=== PATIENT | female | born 1930 | race African-American/Black ===

== ENCOUNTER 2017-12-03 12:33 | Inpatient (IN) ==
[2017-12-03] MEDS ORDERED: PIPERACILLIN/TAZOBACTAM 3,375 MG in SODIUM CHLORIDE 0.9% 100 ML IV STA (14:22)
[2017-12-03] MEDS ORDERED: ALBUTEROL 2.5 MG/3 ML NEB RESP TX STA (14:22)
[2017-12-03 15:03] LABS: Basophils % 0.8 % (0.0-0.8); Eosinophils # 0.1 10*3/uL (0.0-0.87); Eosinophils % 1.9 % (0.00-10.9); Hematocrit 43.2 VOL% (35.7-47.0); Hemoglobin 14.1 GM/DL (12.0-16.0); Immature Granulocytes % 0.4 %; Immature Granulocytes Absolute 0.02 #; Lymphocytes # 0.7 10*3/uL (1.4-4.0); Lymphocytes % 14.8 % (21.3-54.2); Mean Corpuscular HGB Conc 32.6 GM/DL (32-36); Mean Corpuscular Hemoglobin 33 PG (27-34); Mean Corpuscular Volume 101.6 FL (87-102); Mean Platelet Volume 10.7 FL (9.6-12.0); Monocytes # 0.5 10*3/uL (0.11-0.8); Monocytes % 11.2 % (1.7-12.7); Neutrophils # 3.4 10*3/uL (1.4-7.4); Neutrophils % 70.9 % (38.7-73.9); Platelet Count 185 T/CUMM (130-400); Red Blood Count 4.25 MC/CUMM (3.8-5.5); Red Cell Distribution Width 14.5 % (9.3-17.3); White Blood Count 4.7 T/CUMM (4-12)
[2017-12-03 15:09] LABS: INR 1.1; PT Patient Result 11.4 SECS
[2017-12-03 15:18] LABS: Albumin 3.2 G/DL (3.4-5.0); Bilirubin,Total 0.4 MG/DL (0.2-1.0); Calcium 8.1 MG/DL (8.5-10.1); Osmolality,Calculated 279.4 MOS/KG (273-304); Potassium 4.3 MMOL/L (3.5-5.1)
[2017-12-03] MEDS ORDERED: ONDANSETRON 4 MG/2 ML VIAL IV PRN (16:58)
[2017-12-03] MEDS ORDERED: ALBUTEROL 2.5 MG/3 ML NEB RESP TX PRN (16:58)
[2017-12-03] MEDS ORDERED: LEVOFLOXACIN INJ 750 MG in PREMIX 1 EACH IV SCH (17:00)
[2017-12-03] MEDS ORDERED: FEXOFENADINE 60 MG TABLET PO PRN (17:04)
[2017-12-03] MEDS ORDERED: diphenhydrAMINE CAP 25 MG CAPSULE PO PRN (17:04)
[2017-12-03] MEDS ORDERED: LOPERAMIDE 2 MG CAPSULE PO PRN (17:04)
[2017-12-03] MEDS ORDERED: PROMETHAZINE 25 MG TABLET PO PRN (17:04)
[2017-12-03] MEDS ORDERED: MAGNESIUM HYDROXIDE SUSP 30 ML UDCUP PO PRN (17:04)
[2017-12-03 18:17] LABS: ABG Base Excess 0.8 MMOL/L (-2.5-2.5); ABG Oxygen Saturation 93.4 % (95-100); ABG PCO2 67.8 MM HG (35-48); ABG PO2 74.7 MM HG (80-95); ABG TCO2 26.8 MMOL/L (23-27)
[2017-12-03] MEDS: ALBUTEROL/IPRATROPIUM 3 ML NEB RESP TX SCH (19:32)
[2017-12-03] MEDS ORDERED: LEVOFLOXACIN INJ 150 ML IV ONE (20:44)
[2017-12-03] MEDS: PSYLLIUM POWDER 3.7 GM/PACK PO SCH (22:01)
[2017-12-03] MEDS: CYPROHEPTADINE 4 MG TABLET PO SCH (22:02)
[2017-12-03] MEDS: DONEPEZIL 5 MG TABLET PO SCH (22:02)
[2017-12-03] MEDS: CARVEDILOL 12.5 MG TABLET PO SCH (22:02)
[2017-12-03] MEDS: MIRTAZAPINE 15 MG TABLET PO SCH (22:02)
[2017-12-03] MEDS: ENOXAPARIN 40 MG/0.4 ML SYRINGE SUBCUT SCH (22:03)
[2017-12-03] MEDS: PIPERACILLIN/TAZOBACTAM 3,375 MG in SODIUM CHLORIDE 0.9% 100 ML IV SCH (22:26)
[2017-12-04] MEDS: ALBUTEROL/IPRATROPIUM 3 ML NEB RESP TX SCH ×4 (00:12→19:43)
[2017-12-04 04:19] LABS: Basophils % 0.4 % (0.0-0.8); Eosinophils % 0.6 % (0.00-10.9); Hematocrit 42.5 VOL% (35.7-47.0); Hemoglobin 13.5 GM/DL (12.0-16.0); Immature Granulocytes % 1.1 %; Immature Granulocytes Absolute 0.05 #; Lymphocytes # 0.6 10*3/uL (1.4-4.0); Lymphocytes % 11.9 % (21.3-54.2); Mean Corpuscular HGB Conc 31.8 GM/DL (32-36); Mean Corpuscular Hemoglobin 33 PG (27-34); Mean Corpuscular Volume 103.4 FL (87-102); Mean Platelet Volume 10.6 FL (9.6-12.0); Monocytes # 0.5 10*3/uL (0.11-0.8); Neutrophils # 3.5 10*3/uL (1.4-7.4); Platelet Count 152 T/CUMM (130-400); Red Blood Count 4.11 MC/CUMM (3.8-5.5); Red Cell Distribution Width 14.2 % (9.3-17.3); White Blood Count 4.6 T/CUMM (4-12)
[2017-12-04 04:40] LABS: Calcium 8.1 MG/DL (8.5-10.1); Osmolality,Calculated 283.1 MOS/KG (273-304); Potassium 4.1 MMOL/L (3.5-5.1)
[2017-12-04] MEDS: PIPERACILLIN/TAZOBACTAM 3,375 MG in SODIUM CHLORIDE 0.9% 100 ML IV SCH ×3 (05:55→23:25)
[2017-12-04] MEDS: CARVEDILOL 12.5 MG TABLET PO SCH ×2 (08:58→16:50)
[2017-12-04] MEDS: AMIODARONE 200 MG TABLET PO SCH (08:58)
[2017-12-04] MEDS: CITALOPRAM 20 MG TABLET PO SCH (08:58)
[2017-12-04] MEDS: FERROUS SULFATE 325 MG TABLET PO SCH (08:58)
[2017-12-04] MEDS: POTASSIUM CHLORIDE 20 MEQ TABLET PO SCH (08:58)
[2017-12-04] MEDS: amLODIPine 5 MG TABLET PO SCH (08:58)
[2017-12-04] MEDS: POLYETHYLENE GLYCOL POWDER 17 GM PACK PO SCH (08:59)
[2017-12-04] MEDS: PANTOPRAZOLE 40 MG TABLET PO SCH (08:59)
[2017-12-04] MEDS: CYPROHEPTADINE 4 MG TABLET PO SCH ×2 (08:59→20:35)
[2017-12-04] MEDS ORDERED: PANTOPRAZOLE 40 MG TABLET PO SCH (09:00)
[2017-12-04] MEDS ORDERED: FUROSEMIDE 40 MG/4 ML VIAL IV ONE (15:56)
[2017-12-04] MEDS: VANCOMYCIN INJ 750 MG in SODIUM CHLORIDE 0.9% 250 ML IV SCH (16:38)
[2017-12-04] MEDS: ENOXAPARIN 40 MG/0.4 ML SYRINGE SUBCUT SCH (16:50)
[2017-12-04] MEDS: MIRTAZAPINE 15 MG TABLET PO SCH (20:35)
[2017-12-04] MEDS: PSYLLIUM POWDER 3.7 GM/PACK PO SCH (20:35)
[2017-12-04] MEDS: DONEPEZIL 5 MG TABLET PO SCH (20:35)
[2017-12-04 21:31] LABS: Apearance,Urine Slightly Hazy (Clear); Bacteria,Urine Occasional /HPF (Few); Bilirubin,Urine Negative (Negative); Blood, Urine Negative (Negative); Glucose,Urine (UA) Negative (Negative); Ketones,Urine Negative (Negative); Mucus,Urine Occasional /LPF (Occasional); Nitrite,Urine Negative (Negative); Protein,Urine Negative; Squamous Epithelial Cell,Urine Occasional /HPF (0-10); Urine Color Straw (Yellow); Urine Specific Gravity 1.004 (1.001-1.035); Urine Urobilinogen < 2.0 EU/DL (0.2-1.0); WBC,Urine 1 /HPF (0-6)
[2017-12-05] MEDS: ALBUTEROL/IPRATROPIUM 3 ML NEB RESP TX SCH ×4 (01:20→19:22)
[2017-12-05 04:15] LABS: Basophils % 0.6 % (0.0-0.8); Eosinophils # 0.1 10*3/uL (0.0-0.87); Eosinophils % 1.2 % (0.00-10.9); Hematocrit 38.7 VOL% (35.7-47.0); Hemoglobin 12.7 GM/DL (12.0-16.0); Immature Granulocytes % 0.6 %; Immature Granulocytes Absolute 0.03 #; Lymphocytes # 0.7 10*3/uL (1.4-4.0); Lymphocytes % 13.8 % (21.3-54.2); Mean Corpuscular HGB Conc 32.8 GM/DL (32-36); Mean Corpuscular Hemoglobin 33 PG (27-34); Mean Corpuscular Volume 100.8 FL (87-102); Mean Platelet Volume 10.8 FL (9.6-12.0); Monocytes # 0.6 10*3/uL (0.11-0.8); Monocytes % 12.2 % (1.7-12.7); Neutrophils # 3.7 10*3/uL (1.4-7.4); Neutrophils % 71.6 % (38.7-73.9); Platelet Count 156 T/CUMM (130-400); Red Blood Count 3.84 MC/CUMM (3.8-5.5); Red Cell Distribution Width 13.8 % (9.3-17.3); White Blood Count 5.2 T/CUMM (4-12)
[2017-12-05 04:17] LABS: Pt O2 Delivery Device Other
[2017-12-05 04:18] LABS: ABG Base Excess 6.7 MMOL/L (-2.5-2.5); ABG HCO3 30.5 MMOL/L (20-26); ABG Oxygen Saturation 94.7 % (95-100); ABG PCO2 57.7 MM HG (35-48); ABG PH 7.377 (7.35-7.45); ABG PO2 72.7 MM HG (80-95); ABG TCO2 29.9 MMOL/L (23-27)
[2017-12-05] MEDS: PIPERACILLIN/TAZOBACTAM 3,375 MG in SODIUM CHLORIDE 0.9% 100 ML IV SCH ×3 (05:16→21:04)
[2017-12-05 05:37] LABS: Calcium 7.7 MG/DL (8.5-10.1); Potassium 3.1 MMOL/L (3.5-5.1)
[2017-12-05] MEDS: CITALOPRAM 20 MG TABLET PO SCH (08:27)
[2017-12-05] MEDS: CARVEDILOL 12.5 MG TABLET PO SCH ×2 (08:27→17:32)
[2017-12-05] MEDS: PANTOPRAZOLE 40 MG TABLET PO SCH (08:27)
[2017-12-05] MEDS: amLODIPine 5 MG TABLET PO SCH (08:27)
[2017-12-05] MEDS: CYPROHEPTADINE 4 MG TABLET PO SCH ×2 (08:27→20:54)
[2017-12-05] MEDS: POTASSIUM CHLORIDE 20 MEQ TABLET PO SCH (08:27)
[2017-12-05] MEDS: FERROUS SULFATE 325 MG TABLET PO SCH (08:27)
[2017-12-05] MEDS: AMIODARONE 200 MG TABLET PO SCH (08:28)
[2017-12-05] MEDS: POLYETHYLENE GLYCOL POWDER 17 GM PACK PO SCH (08:28)
[2017-12-05] MEDS ORDERED: POTASSIUM CHLORIDE 20 MEQ TABLET PO ONE (11:17)
[2017-12-05] MEDS ORDERED: SODIUM CHLORIDE 0.9% 500 ML IV ONE (11:23)
[2017-12-05 11:28] LABS: Lymphocytes,Pleural Fluid 92 %; Monocytes,Pleural Fluid 8 %
[2017-12-05 11:29] LABS: RBC,Pleural Fluid 5122 T/CUMM
[2017-12-05] MEDS: ACETAMINOPHEN 325 MG TABLET PO PRN (11:38)
[2017-12-05] MEDS: VANCOMYCIN INJ 750 MG in SODIUM CHLORIDE 0.9% 250 ML IV SCH (14:53)
[2017-12-05] MEDS: ENOXAPARIN 40 MG/0.4 ML SYRINGE SUBCUT SCH (18:15)
[2017-12-05] MEDS: PSYLLIUM POWDER 3.7 GM/PACK PO SCH (20:54)
[2017-12-05] MEDS: MIRTAZAPINE 15 MG TABLET PO SCH (20:54)
[2017-12-05] MEDS: DONEPEZIL 5 MG TABLET PO SCH (20:54)
[2017-12-06] MEDS: ALBUTEROL/IPRATROPIUM 3 ML NEB RESP TX SCH ×4 (00:31→19:10)
[2017-12-06] MEDS: PIPERACILLIN/TAZOBACTAM 3,375 MG in SODIUM CHLORIDE 0.9% 100 ML IV SCH ×3 (05:45→21:28)
[2017-12-06 05:55] LABS: Basophils % 0.7 % (0.0-0.8); Eosinophils # 0.1 10*3/uL (0.0-0.87); Eosinophils % 2.4 % (0.00-10.9); Hematocrit 39.5 VOL% (35.7-47.0); Hemoglobin 12.6 GM/DL (12.0-16.0); Immature Granulocytes % 0.4 %; Immature Granulocytes Absolute 0.02 #; Lymphocytes # 0.5 10*3/uL (1.4-4.0); Lymphocytes % 10.4 % (21.3-54.2); Mean Corpuscular HGB Conc 31.9 GM/DL (32-36); Mean Corpuscular Hemoglobin 33 PG (27-34); Mean Corpuscular Volume 102.3 FL (87-102); Mean Platelet Volume 10.5 FL (9.6-12.0); Monocytes # 0.5 10*3/uL (0.11-0.8); Monocytes % 10.4 % (1.7-12.7); Neutrophils # 3.4 10*3/uL (1.4-7.4); Neutrophils % 75.7 % (38.7-73.9); Platelet Count 121 T/CUMM (130-400); Red Blood Count 3.86 MC/CUMM (3.8-5.5); White Blood Count 4.5 T/CUMM (4-12)
[2017-12-06 06:27] LABS: Calcium 8.1 MG/DL (8.5-10.1); Osmolality,Calculated 288.7 MOS/KG (273-304); Potassium 3.8 MMOL/L (3.5-5.1)
[2017-12-06] MEDS: FERROUS SULFATE 325 MG TABLET PO SCH (09:02)
[2017-12-06] MEDS: POLYETHYLENE GLYCOL POWDER 17 GM PACK PO SCH (09:02)
[2017-12-06] MEDS: CITALOPRAM 20 MG TABLET PO SCH (09:02)
[2017-12-06] MEDS: AMIODARONE 200 MG TABLET PO SCH (09:03)
[2017-12-06] MEDS: POTASSIUM CHLORIDE 20 MEQ TABLET PO SCH (09:03)
[2017-12-06] MEDS: PANTOPRAZOLE 40 MG TABLET PO SCH (09:03)
[2017-12-06] MEDS: CARVEDILOL 12.5 MG TABLET PO SCH ×2 (09:03→17:31)
[2017-12-06] MEDS: amLODIPine 5 MG TABLET PO SCH (09:03)
[2017-12-06] MEDS: CYPROHEPTADINE 4 MG TABLET PO SCH ×2 (09:03→21:27)
[2017-12-06] MEDS ORDERED: FUROSEMIDE 40 MG/4 ML VIAL IV ONE (09:09)
[2017-12-06] MEDS: VANCOMYCIN INJ 750 MG in SODIUM CHLORIDE 0.9% 250 ML IV SCH (15:36)
[2017-12-06] MEDS: ENOXAPARIN 40 MG/0.4 ML SYRINGE SUBCUT SCH (17:31)
[2017-12-06] MEDS: PSYLLIUM POWDER 3.7 GM/PACK PO SCH (21:26)
[2017-12-06] MEDS: MIRTAZAPINE 15 MG TABLET PO SCH (21:27)
[2017-12-06] MEDS: DONEPEZIL 5 MG TABLET PO SCH (21:27)
[2017-12-07] MEDS: ALBUTEROL/IPRATROPIUM 3 ML NEB RESP TX SCH ×4 (00:25→20:03)
[2017-12-07 03:23] LABS: ABG Base Excess 4.9 MMOL/L (-2.5-2.5); ABG HCO3 28.7 MMOL/L (20-26); ABG Oxygen Saturation 94.9 % (95-100); ABG PCO2 52.8 MM HG (35-48); ABG PH 7.381 (7.35-7.45); ABG PO2 75.4 MM HG (80-95); ABG TCO2 27.7 MMOL/L (23-27); Allen Test Positive; Pt O2 Delivery Device Other
[2017-12-07] MEDS: VANCOMYCIN INJ 750 MG in SODIUM CHLORIDE 0.9% 250 ML IV SCH ×2 (03:58→21:12)
[2017-12-07 05:42] LABS: Basophils % 0.5 % (0.0-0.8); Eosinophils # 0.1 10*3/uL (0.0-0.87); Eosinophils % 2.2 % (0.00-10.9); Hematocrit 38.3 VOL% (35.7-47.0); Hemoglobin 12.1 GM/DL (12.0-16.0); Immature Granulocytes % 0.5 %; Immature Granulocytes Absolute 0.02 #; Lymphocytes # 0.5 10*3/uL (1.4-4.0); Lymphocytes % 10.9 % (21.3-54.2); Mean Corpuscular HGB Conc 31.6 GM/DL (32-36); Mean Corpuscular Hemoglobin 32 PG (27-34); Mean Corpuscular Volume 102.1 FL (87-102); Mean Platelet Volume 10.8 FL (9.6-12.0); Monocytes # 0.4 10*3/uL (0.11-0.8); Monocytes % 9.2 % (1.7-12.7); Neutrophils # 3.2 10*3/uL (1.4-7.4); Neutrophils % 76.7 % (38.7-73.9); Platelet Count 111 T/CUMM (130-400); Red Blood Count 3.75 MC/CUMM (3.8-5.5); Red Cell Distribution Width 13.8 % (9.3-17.3); White Blood Count 4.1 T/CUMM (4-12)
[2017-12-07] MEDS: PIPERACILLIN/TAZOBACTAM 3,375 MG in SODIUM CHLORIDE 0.9% 100 ML IV SCH ×3 (05:56→21:12)
[2017-12-07 06:13] LABS: Osmolality,Calculated 289.7 MOS/KG (273-304); Potassium 3.6 MMOL/L (3.5-5.1)
[2017-12-07] MEDS ORDERED: FUROSEMIDE 40 MG/4 ML VIAL IV ONE (07:55)
[2017-12-07] MEDS: CYPROHEPTADINE 4 MG TABLET PO SCH ×2 (08:40→21:04)
[2017-12-07] MEDS: FERROUS SULFATE 325 MG TABLET PO SCH (08:40)
[2017-12-07] MEDS: PANTOPRAZOLE 40 MG TABLET PO SCH (08:40)
[2017-12-07] MEDS: amLODIPine 5 MG TABLET PO SCH (08:40)
[2017-12-07] MEDS: CITALOPRAM 20 MG TABLET PO SCH (08:40)
[2017-12-07] MEDS: CARVEDILOL 12.5 MG TABLET PO SCH ×2 (08:40→17:09)
[2017-12-07] MEDS: AMIODARONE 200 MG TABLET PO SCH (08:40)
[2017-12-07] MEDS: POTASSIUM CHLORIDE 20 MEQ TABLET PO SCH (08:41)
[2017-12-07] MEDS: POLYETHYLENE GLYCOL POWDER 17 GM PACK PO SCH (08:41)
[2017-12-07] MEDS: ENOXAPARIN 40 MG/0.4 ML SYRINGE SUBCUT SCH (17:09)
[2017-12-07] MEDS: DONEPEZIL 5 MG TABLET PO SCH (21:04)
[2017-12-07] MEDS: MIRTAZAPINE 15 MG TABLET PO SCH (21:04)
[2017-12-07] MEDS: PSYLLIUM POWDER 3.7 GM/PACK PO SCH (21:04)
[2017-12-07] MEDS ORDERED: SODIUM CHLORIDE 0.9% 250 ML IV ONE (22:20)
[2017-12-08] MEDS: ALBUTEROL/IPRATROPIUM 3 ML NEB RESP TX SCH ×4 (01:50→19:19)
[2017-12-08 04:23] LABS: Basophils % 0.2 % (0.0-0.8); Eosinophils # 0.1 10*3/uL (0.0-0.87); Eosinophils % 1.4 % (0.00-10.9); Hemoglobin 11.5 GM/DL (12.0-16.0); Immature Granulocytes % 0.6 %; Immature Granulocytes Absolute 0.03 #; Lymphocytes # 0.5 10*3/uL (1.4-4.0); Lymphocytes % 10.4 % (21.3-54.2); Mean Corpuscular HGB Conc 31.1 GM/DL (32-36); Mean Corpuscular Hemoglobin 33 PG (27-34); Mean Corpuscular Volume 105.4 FL (87-102); Monocytes # 0.5 10*3/uL (0.11-0.8); Monocytes % 9.6 % (1.7-12.7); Neutrophils # 3.9 10*3/uL (1.4-7.4); Neutrophils % 77.8 % (38.7-73.9); Platelet Count 126 T/CUMM (130-400); Red Blood Count 3.51 MC/CUMM (3.8-5.5); Red Cell Distribution Width 13.8 % (9.3-17.3)
[2017-12-08] MEDS: VANCOMYCIN INJ 750 MG in SODIUM CHLORIDE 0.9% 250 ML IV SCH ×2 (05:58→17:40)
[2017-12-08] MEDS: PIPERACILLIN/TAZOBACTAM 3,375 MG in SODIUM CHLORIDE 0.9% 100 ML IV SCH ×3 (05:59→22:08)
[2017-12-08 06:22] LABS: Calcium 7.6 MG/DL (8.5-10.1); Osmolality,Calculated 293.4 MOS/KG (273-304); Potassium 3.2 MMOL/L (3.5-5.1)
[2017-12-08] MEDS: POLYETHYLENE GLYCOL POWDER 17 GM PACK PO SCH (07:21)
[2017-12-08] MEDS ORDERED: LACTATED RINGERS 250 ML IV ONE (07:44)
[2017-12-08] MEDS: amLODIPine 5 MG TABLET PO SCH (08:08)
[2017-12-08] MEDS ORDERED: POTASSIUM CHLORIDE RIDER 10 MEQ in PREMIX 1 EACH IV PRN (08:14)
[2017-12-08] MEDS: AMIODARONE 200 MG TABLET PO SCH (08:15)
[2017-12-08] MEDS: CITALOPRAM 20 MG TABLET PO SCH (08:16)
[2017-12-08] MEDS: CARVEDILOL 12.5 MG TABLET PO SCH ×2 (08:16→17:30)
[2017-12-08] MEDS: POTASSIUM CHLORIDE 20 MEQ TABLET PO SCH (08:16)
[2017-12-08] MEDS: CYPROHEPTADINE 4 MG TABLET PO SCH ×2 (08:16→20:20)
[2017-12-08] MEDS: FERROUS SULFATE 325 MG TABLET PO SCH (08:16)
[2017-12-08] MEDS: PANTOPRAZOLE 40 MG TABLET PO SCH (08:16)
[2017-12-08] MEDS: POTASSIUM CHLORIDE RIDER 20 MEQ in PREMIX 1 EACH IV PRN ×2 (08:30→10:31)
[2017-12-08] MEDS: PHENYLEPHRINE DRIP 40 MG/250 ML PREMIX IV PRN (11:02)
[2017-12-08] MEDS: ENOXAPARIN 40 MG/0.4 ML SYRINGE SUBCUT SCH (17:40)
[2017-12-08] MEDS: MIRTAZAPINE 15 MG TABLET PO SCH (20:20)
[2017-12-08] MEDS: PSYLLIUM POWDER 3.7 GM/PACK PO SCH (20:20)
[2017-12-08] MEDS: DONEPEZIL 5 MG TABLET PO SCH (20:20)
[2017-12-09] MEDS: ALBUTEROL/IPRATROPIUM 3 ML NEB RESP TX SCH ×4 (00:49→19:20)
[2017-12-09 04:08] LABS: Basophils % 0.7 % (0.0-0.8); Eosinophils # 0.2 10*3/uL (0.0-0.87); Eosinophils % 3.9 % (0.00-10.9); Hematocrit 34.9 VOL% (35.7-47.0); Hemoglobin 10.7 GM/DL (12.0-16.0); Immature Granulocytes % 0.7 %; Immature Granulocytes Absolute 0.03 #; Lymphocytes # 0.6 10*3/uL (1.4-4.0); Lymphocytes % 13.2 % (21.3-54.2); Mean Corpuscular HGB Conc 30.7 GM/DL (32-36); Mean Corpuscular Hemoglobin 33 PG (27-34); Mean Corpuscular Volume 106.7 FL (87-102); Mean Platelet Volume 10.3 FL (9.6-12.0); Monocytes # 0.5 10*3/uL (0.11-0.8); Monocytes % 10.4 % (1.7-12.7); Neutrophils # 3.1 10*3/uL (1.4-7.4); Neutrophils % 71.1 % (38.7-73.9); Platelet Count 113 T/CUMM (130-400); Red Blood Count 3.27 MC/CUMM (3.8-5.5); White Blood Count 4.3 T/CUMM (4-12)
[2017-12-09] MEDS: VANCOMYCIN INJ 750 MG in SODIUM CHLORIDE 0.9% 250 ML IV SCH ×2 (04:36→17:45)
[2017-12-09 05:28] LABS: Alanine Aminotransferase < 6 U/L (13-56); Albumin 2.5 G/DL (3.4-5.0); Alkaline Phosphatase 73 U/L (45-117); Aspartate Amino Transferase 11 U/L (0-37); Blood Urea Nitrogen 17 MG/DL (7-18); Calcium 7.9 MG/DL (8.5-10.1); Glucose 82 MG/DL (74-106); Osmolality,Calculated 292.4 MOS/KG (273-304); Potassium 3.7 MMOL/L (3.5-5.1); Sodium 147 MMOL/L (136-145); Total Protein 5.2 G/DL (6.4-8.3)
[2017-12-09] MEDS: POTASSIUM CHLORIDE RIDER 20 MEQ in PREMIX 1 EACH IV PRN (05:52)
[2017-12-09] MEDS: PHENYLEPHRINE DRIP 40 MG/250 ML PREMIX IV PRN (05:53)
[2017-12-09] MEDS: PIPERACILLIN/TAZOBACTAM 3,375 MG in SODIUM CHLORIDE 0.9% 100 ML IV SCH ×3 (05:57→21:32)
[2017-12-09] MEDS: PANTOPRAZOLE 40 MG TABLET PO SCH (08:12)
[2017-12-09] MEDS: CITALOPRAM 20 MG TABLET PO SCH (08:12)
[2017-12-09] MEDS: CARVEDILOL 12.5 MG TABLET PO SCH ×2 (08:12→17:35)
[2017-12-09] MEDS: AMIODARONE 200 MG TABLET PO SCH (08:12)
[2017-12-09] MEDS: CYPROHEPTADINE 4 MG TABLET PO SCH ×2 (08:12→21:26)
[2017-12-09] MEDS: POTASSIUM CHLORIDE 20 MEQ TABLET PO SCH (08:12)
[2017-12-09] MEDS: amLODIPine 5 MG TABLET PO SCH (08:12)
[2017-12-09] MEDS: FERROUS SULFATE 325 MG TABLET PO SCH (08:12)
[2017-12-09] MEDS: POLYETHYLENE GLYCOL POWDER 17 GM PACK PO SCH (08:12)
[2017-12-09] MEDS: ENOXAPARIN 40 MG/0.4 ML SYRINGE SUBCUT SCH (17:40)
[2017-12-09] MEDS: DONEPEZIL 5 MG TABLET PO SCH (21:26)
[2017-12-09] MEDS: MIRTAZAPINE 15 MG TABLET PO SCH (21:27)
[2017-12-09] MEDS: PSYLLIUM POWDER 3.7 GM/PACK PO SCH (21:28)
[2017-12-10] MEDS: ALBUTEROL/IPRATROPIUM 3 ML NEB RESP TX SCH ×4 (00:27→19:47)
[2017-12-10 04:50] LABS: Osmolality,Calculated 291.4 MOS/KG (273-304); Potassium 3.7 MMOL/L (3.5-5.1)
[2017-12-10] MEDS: VANCOMYCIN INJ 750 MG in SODIUM CHLORIDE 0.9% 250 ML IV SCH (05:53)
[2017-12-10] MEDS: PIPERACILLIN/TAZOBACTAM 3,375 MG in SODIUM CHLORIDE 0.9% 100 ML IV SCH ×3 (05:56→21:05)
[2017-12-10] MEDS: POTASSIUM CHLORIDE RIDER 20 MEQ in PREMIX 1 EACH IV PRN (05:59)
[2017-12-10] MEDS: CYPROHEPTADINE 4 MG TABLET PO SCH ×2 (10:40→20:48)
[2017-12-10] MEDS: POLYETHYLENE GLYCOL POWDER 17 GM PACK PO SCH (10:40)
[2017-12-10] MEDS: CITALOPRAM 20 MG TABLET PO SCH (10:40)
[2017-12-10] MEDS: amLODIPine 5 MG TABLET PO SCH (10:42)
[2017-12-10] MEDS: AMIODARONE 200 MG TABLET PO SCH (10:42)
[2017-12-10] MEDS: FERROUS SULFATE 325 MG TABLET PO SCH (10:42)
[2017-12-10] MEDS: PANTOPRAZOLE 40 MG TABLET PO SCH (10:42)
[2017-12-10] MEDS: CARVEDILOL 12.5 MG TABLET PO SCH ×2 (10:43→18:14)
[2017-12-10] MEDS: POTASSIUM CHLORIDE 20 MEQ TABLET PO SCH (10:43)
[2017-12-10] MEDS: ENOXAPARIN 40 MG/0.4 ML SYRINGE SUBCUT SCH (18:20)
[2017-12-10] MEDS: MIRTAZAPINE 15 MG TABLET PO SCH (20:48)
[2017-12-10] MEDS: DONEPEZIL 5 MG TABLET PO SCH (20:48)
[2017-12-10] MEDS: PSYLLIUM POWDER 3.7 GM/PACK PO SCH (20:50)
[2017-12-11] MEDS: ALBUTEROL/IPRATROPIUM 3 ML NEB RESP TX SCH ×4 (00:23→19:20)
[2017-12-11] MEDS: VANCOMYCIN INJ 750 MG in SODIUM CHLORIDE 0.9% 250 ML IV SCH ×2 (00:44→19:04)
[2017-12-11] MEDS: PIPERACILLIN/TAZOBACTAM 3,375 MG in SODIUM CHLORIDE 0.9% 100 ML IV SCH ×3 (05:04→21:04)
[2017-12-11 05:22] LABS: Calcium 8.2 MG/DL (8.5-10.1); Potassium 3.8 MMOL/L (3.5-5.1)
[2017-12-11] MEDS: POLYETHYLENE GLYCOL POWDER 17 GM PACK PO SCH (08:13)
[2017-12-11] MEDS: CYPROHEPTADINE 4 MG TABLET PO SCH ×2 (08:17→20:34)
[2017-12-11] MEDS: CITALOPRAM 20 MG TABLET PO SCH (08:18)
[2017-12-11] MEDS: PANTOPRAZOLE 40 MG TABLET PO SCH (08:18)
[2017-12-11] MEDS: POTASSIUM CHLORIDE 20 MEQ TABLET PO SCH (08:18)
[2017-12-11] MEDS: amLODIPine 5 MG TABLET PO SCH (08:18)
[2017-12-11] MEDS: CARVEDILOL 12.5 MG TABLET PO SCH ×2 (08:20→16:45)
[2017-12-11] MEDS: AMIODARONE 200 MG TABLET PO SCH (08:20)
[2017-12-11] MEDS: FERROUS SULFATE 325 MG TABLET PO SCH (08:21)
[2017-12-11] MEDS: ENOXAPARIN 40 MG/0.4 ML SYRINGE SUBCUT SCH (16:46)
[2017-12-11] MEDS: MIRTAZAPINE 15 MG TABLET PO SCH (20:34)
[2017-12-11] MEDS: DONEPEZIL 5 MG TABLET PO SCH (20:34)
[2017-12-11] MEDS: PSYLLIUM POWDER 3.7 GM/PACK PO SCH (20:34)
[2017-12-12] MEDS: ALBUTEROL/IPRATROPIUM 3 ML NEB RESP TX SCH ×4 (00:10→19:43)
[2017-12-12] MEDS: PIPERACILLIN/TAZOBACTAM 3,375 MG in SODIUM CHLORIDE 0.9% 100 ML IV SCH ×3 (05:04→21:58)
[2017-12-12] MEDS: POLYETHYLENE GLYCOL POWDER 17 GM PACK PO SCH (08:40)
[2017-12-12] MEDS: amLODIPine 5 MG TABLET PO SCH (08:40)
[2017-12-12] MEDS: CITALOPRAM 20 MG TABLET PO SCH (08:40)
[2017-12-12] MEDS: AMIODARONE 200 MG TABLET PO SCH (08:41)
[2017-12-12] MEDS: PANTOPRAZOLE 40 MG TABLET PO SCH (08:41)
[2017-12-12] MEDS: FERROUS SULFATE 325 MG TABLET PO SCH (08:42)
[2017-12-12] MEDS: CARVEDILOL 12.5 MG TABLET PO SCH ×2 (08:42→17:05)
[2017-12-12] MEDS: POTASSIUM CHLORIDE 20 MEQ TABLET PO SCH (08:46)
[2017-12-12] MEDS: CYPROHEPTADINE 4 MG TABLET PO SCH ×2 (11:09→20:50)
[2017-12-12] MEDS: VANCOMYCIN INJ 750 MG in SODIUM CHLORIDE 0.9% 250 ML IV SCH (12:30)
[2017-12-12] MEDS: ACETAMINOPHEN 325 MG TABLET PO PRN (17:05)
[2017-12-12] MEDS: ENOXAPARIN 40 MG/0.4 ML SYRINGE SUBCUT SCH (17:05)
[2017-12-12] MEDS: MIRTAZAPINE 15 MG TABLET PO SCH (20:48)
[2017-12-12] MEDS: DONEPEZIL 5 MG TABLET PO SCH (20:49)
[2017-12-12] MEDS: PSYLLIUM POWDER 3.7 GM/PACK PO SCH (20:50)
[2017-12-13] MEDS: ALBUTEROL/IPRATROPIUM 3 ML NEB RESP TX SCH ×4 (00:08→19:34)
[2017-12-13 05:07] LABS: Basophils % 0.5 % (0.0-0.8); Eosinophils # 0.2 10*3/uL (0.0-0.87); Eosinophils % 3.5 % (0.00-10.9); Hematocrit 33.9 VOL% (35.7-47.0); Hemoglobin 10.5 GM/DL (12.0-16.0); Immature Granulocytes % 1.4 %; Immature Granulocytes Absolute 0.06 #; Lymphocytes # 0.6 10*3/uL (1.4-4.0); Mean Corpuscular Hemoglobin 33 PG (27-34); Mean Corpuscular Volume 106.3 FL (87-102); Mean Platelet Volume 10.7 FL (9.6-12.0); Monocytes # 0.6 10*3/uL (0.11-0.8); Monocytes % 13.7 % (1.7-12.7); Neutrophils # 2.9 10*3/uL (1.4-7.4); Neutrophils % 66.9 % (38.7-73.9); Platelet Count 130 T/CUMM (130-400); Red Blood Count 3.19 MC/CUMM (3.8-5.5); Red Cell Distribution Width 13.7 % (9.3-17.3); White Blood Count 4.3 T/CUMM (4-12)
[2017-12-13 05:16] LABS: INR 1.1; PT Patient Result 11.6 SECS
[2017-12-13] MEDS: VANCOMYCIN INJ 750 MG in SODIUM CHLORIDE 0.9% 250 ML IV SCH (05:33)
[2017-12-13] MEDS: PIPERACILLIN/TAZOBACTAM 3,375 MG in SODIUM CHLORIDE 0.9% 100 ML IV SCH ×3 (06:54→22:09)
[2017-12-13 07:02] LABS: Cancer Antigen 19-9 1.3 U/ML (0-37); Carcinoembryonic Antigen 8.2 NG/ML (0.0-5.0)
[2017-12-13] MEDS ORDERED: FUROSEMIDE 20 MG/2 ML VIAL IV ONE (07:42)
[2017-12-13] MEDS: POLYETHYLENE GLYCOL POWDER 17 GM PACK PO SCH (07:53)
[2017-12-13] MEDS: AMIODARONE 200 MG TABLET PO SCH (07:53)
[2017-12-13] MEDS: amLODIPine 5 MG TABLET PO SCH (07:54)
[2017-12-13] MEDS: CARVEDILOL 12.5 MG TABLET PO SCH ×2 (07:54→17:18)
[2017-12-13] MEDS: CITALOPRAM 20 MG TABLET PO SCH (08:00)
[2017-12-13] MEDS: FERROUS SULFATE 325 MG TABLET PO SCH (08:01)
[2017-12-13] MEDS: CYPROHEPTADINE 4 MG TABLET PO SCH ×2 (08:01→20:26)
[2017-12-13] MEDS: POTASSIUM CHLORIDE 20 MEQ TABLET PO SCH (08:01)
[2017-12-13] MEDS: PANTOPRAZOLE 40 MG TABLET PO SCH (08:01)
[2017-12-13] MEDS: ENOXAPARIN 40 MG/0.4 ML SYRINGE SUBCUT SCH (17:18)
[2017-12-13] MEDS: MIRTAZAPINE 15 MG TABLET PO SCH (20:26)
[2017-12-13] MEDS: DONEPEZIL 5 MG TABLET PO SCH (20:26)
[2017-12-13] MEDS: PSYLLIUM POWDER 3.7 GM/PACK PO SCH (20:29)
[2017-12-14] MEDS: VANCOMYCIN INJ 750 MG in SODIUM CHLORIDE 0.9% 250 ML IV SCH (01:02)
[2017-12-14] MEDS: ALBUTEROL/IPRATROPIUM 3 ML NEB RESP TX SCH ×4 (01:54→20:12)
[2017-12-14] MEDS: PIPERACILLIN/TAZOBACTAM 3,375 MG in SODIUM CHLORIDE 0.9% 100 ML IV SCH (05:42)
[2017-12-14] MEDS: CYPROHEPTADINE 4 MG TABLET PO SCH ×2 (08:29→21:03)
[2017-12-14] MEDS: PANTOPRAZOLE 40 MG TABLET PO SCH (08:30)
[2017-12-14] MEDS: FERROUS SULFATE 325 MG TABLET PO SCH (08:30)
[2017-12-14] MEDS: CARVEDILOL 12.5 MG TABLET PO SCH ×2 (08:30→17:17)
[2017-12-14] MEDS: amLODIPine 5 MG TABLET PO SCH (08:30)
[2017-12-14] MEDS: AMIODARONE 200 MG TABLET PO SCH (08:37)
[2017-12-14] MEDS: POTASSIUM CHLORIDE 20 MEQ TABLET PO SCH (08:38)
[2017-12-14] MEDS: CITALOPRAM 20 MG TABLET PO SCH (08:38)
[2017-12-14] MEDS ORDERED: FUROSEMIDE 40 MG/4 ML VIAL IV ONE (08:40)
[2017-12-14] MEDS ORDERED: THROMBIN TOPICAL (RECOMBINANT) 5,000 UNIT VIAL TOP ONE (12:51)
[2017-12-14] MEDS: POLYETHYLENE GLYCOL POWDER 17 GM PACK PO SCH (15:17)
[2017-12-14] MEDS: ENOXAPARIN 40 MG/0.4 ML SYRINGE SUBCUT SCH (17:17)
[2017-12-14] MEDS: PSYLLIUM POWDER 3.7 GM/PACK PO SCH (21:03)
[2017-12-14] MEDS: MIRTAZAPINE 15 MG TABLET PO SCH (21:03)
[2017-12-14] MEDS: DONEPEZIL 5 MG TABLET PO SCH (21:03)
[2017-12-15] MEDS: ALBUTEROL/IPRATROPIUM 3 ML NEB RESP TX SCH ×4 (00:47→19:22)
[2017-12-15 04:05] LABS: Basophils % 0.5 % (0.0-0.8); Eosinophils # 0.1 10*3/uL (0.0-0.87); Eosinophils % 2.8 % (0.00-10.9); Hematocrit 35.1 VOL% (35.7-47.0); Hemoglobin 11.1 GM/DL (12.0-16.0); Immature Granulocytes % 1.5 %; Immature Granulocytes Absolute 0.06 #; Lymphocytes # 0.5 10*3/uL (1.4-4.0); Lymphocytes % 13.4 % (21.3-54.2); Mean Corpuscular HGB Conc 31.6 GM/DL (32-36); Mean Corpuscular Hemoglobin 33 PG (27-34); Mean Corpuscular Volume 102.6 FL (87-102); Mean Platelet Volume 10.2 FL (9.6-12.0); Monocytes # 0.5 10*3/uL (0.11-0.8); Monocytes % 12.6 % (1.7-12.7); Neutrophils # 2.7 10*3/uL (1.4-7.4); Neutrophils % 69.2 % (38.7-73.9); Platelet Count 150 T/CUMM (130-400); Red Blood Count 3.42 MC/CUMM (3.8-5.5); Red Cell Distribution Width 13.9 % (9.3-17.3)
[2017-12-15 04:37] LABS: Calcium 8.1 MG/DL (8.5-10.1); Osmolality,Calculated 284.8 MOS/KG (273-304); Potassium 2.8 MMOL/L (3.5-5.1)
[2017-12-15] MEDS ORDERED: POTASSIUM CHLORIDE 20 MEQ TABLET PO ONE (07:42)
[2017-12-15] MEDS: amLODIPine 5 MG TABLET PO SCH (08:27)
[2017-12-15] MEDS: CITALOPRAM 20 MG TABLET PO SCH (08:27)
[2017-12-15] MEDS: CYPROHEPTADINE 4 MG TABLET PO SCH ×2 (08:27→20:27)
[2017-12-15] MEDS: PANTOPRAZOLE 40 MG TABLET PO SCH (08:27)
[2017-12-15] MEDS: AMIODARONE 200 MG TABLET PO SCH (08:28)
[2017-12-15] MEDS: CARVEDILOL 12.5 MG TABLET PO SCH ×2 (08:28→18:00)
[2017-12-15] MEDS: POLYETHYLENE GLYCOL POWDER 17 GM PACK PO SCH (08:28)
[2017-12-15] MEDS: FERROUS SULFATE 325 MG TABLET PO SCH (08:28)
[2017-12-15] MEDS: POTASSIUM CHLORIDE 20 MEQ TABLET PO SCH (08:29)
[2017-12-15] MEDS: ENOXAPARIN 40 MG/0.4 ML SYRINGE SUBCUT SCH (18:00)
[2017-12-15] MEDS: PSYLLIUM POWDER 3.7 GM/PACK PO SCH (20:26)
[2017-12-15] MEDS: MIRTAZAPINE 15 MG TABLET PO SCH (20:27)
[2017-12-15] MEDS: DONEPEZIL 5 MG TABLET PO SCH (20:27)
[2017-12-16] MEDS: ALBUTEROL/IPRATROPIUM 3 ML NEB RESP TX SCH ×4 (00:54→19:10)
[2017-12-16 03:42] LABS: Calcium 8.4 MG/DL (8.5-10.1); Osmolality,Calculated 288.6 MOS/KG (273-304); Potassium 3.8 MMOL/L (3.5-5.1)
[2017-12-16] MEDS: POLYETHYLENE GLYCOL POWDER 17 GM PACK PO SCH (08:28)
[2017-12-16] MEDS: CITALOPRAM 20 MG TABLET PO SCH (08:31)
[2017-12-16] MEDS: AMIODARONE 200 MG TABLET PO SCH (08:34)
[2017-12-16] MEDS: CYPROHEPTADINE 4 MG TABLET PO SCH ×2 (08:35→20:25)
[2017-12-16] MEDS: amLODIPine 5 MG TABLET PO SCH (08:35)
[2017-12-16] MEDS: CARVEDILOL 12.5 MG TABLET PO SCH ×2 (08:36→17:09)
[2017-12-16] MEDS: PANTOPRAZOLE 40 MG TABLET PO SCH (08:36)
[2017-12-16] MEDS: FERROUS SULFATE 325 MG TABLET PO SCH (08:36)
[2017-12-16] MEDS: POTASSIUM CHLORIDE 20 MEQ TABLET PO SCH (08:36)
[2017-12-16] MEDS: ENOXAPARIN 40 MG/0.4 ML SYRINGE SUBCUT SCH (17:09)
[2017-12-16] MEDS: PSYLLIUM POWDER 3.7 GM/PACK PO SCH (20:25)
[2017-12-16] MEDS: MIRTAZAPINE 15 MG TABLET PO SCH (20:25)
[2017-12-16] MEDS: DONEPEZIL 5 MG TABLET PO SCH (20:26)
[2017-12-17] MEDS: ALBUTEROL/IPRATROPIUM 3 ML NEB RESP TX SCH ×4 (01:03→19:01)
[2017-12-17] MEDS: AMIODARONE 200 MG TABLET PO SCH (10:41)
[2017-12-17] MEDS: CARVEDILOL 12.5 MG TABLET PO SCH ×2 (10:41→17:15)
[2017-12-17] MEDS: CITALOPRAM 20 MG TABLET PO SCH (10:45)
[2017-12-17] MEDS: CYPROHEPTADINE 4 MG TABLET PO SCH ×2 (10:45→20:08)
[2017-12-17] MEDS: PANTOPRAZOLE 40 MG TABLET PO SCH (10:45)
[2017-12-17] MEDS: FERROUS SULFATE 325 MG TABLET PO SCH (10:45)
[2017-12-17] MEDS: amLODIPine 5 MG TABLET PO SCH (10:45)
[2017-12-17] MEDS: POLYETHYLENE GLYCOL POWDER 17 GM PACK PO SCH (10:45)
[2017-12-17] MEDS: POTASSIUM CHLORIDE 20 MEQ TABLET PO SCH (10:45)
[2017-12-17] MEDS: ENOXAPARIN 40 MG/0.4 ML SYRINGE SUBCUT SCH ×2 (19:22→20:13)
[2017-12-17] MEDS: MIRTAZAPINE 15 MG TABLET PO SCH (20:08)
[2017-12-17] MEDS: DONEPEZIL 5 MG TABLET PO SCH (20:08)
[2017-12-17] MEDS: PSYLLIUM POWDER 3.7 GM/PACK PO SCH (20:12)
[2017-12-18] MEDS: ALBUTEROL/IPRATROPIUM 3 ML NEB RESP TX SCH ×4 (00:25→19:30)
[2017-12-18] MEDS ORDERED: DOXYCYCLINE HYCLATE INJ 200 MG, LIDOCAINE 1% INJ 20 ML in STERILE WATER INJ 40 ML INTRAPLEUR ONE (09:00)
[2017-12-18] MEDS: CARVEDILOL 12.5 MG TABLET PO SCH ×2 (09:59→18:15)
[2017-12-18] MEDS: amLODIPine 5 MG TABLET PO SCH (09:59)
[2017-12-18] MEDS: CITALOPRAM 20 MG TABLET PO SCH (09:59)
[2017-12-18] MEDS: POTASSIUM CHLORIDE 20 MEQ TABLET PO SCH (09:59)
[2017-12-18] MEDS: POLYETHYLENE GLYCOL POWDER 17 GM PACK PO SCH (09:59)
[2017-12-18] MEDS: FERROUS SULFATE 325 MG TABLET PO SCH (09:59)
[2017-12-18] MEDS: AMIODARONE 200 MG TABLET PO SCH (09:59)
[2017-12-18] MEDS: PANTOPRAZOLE 40 MG TABLET PO SCH (10:00)
[2017-12-18] MEDS: CYPROHEPTADINE 4 MG TABLET PO SCH ×2 (10:00→20:48)
[2017-12-18] MEDS: ACETAMINOPHEN 325 MG TABLET PO PRN (18:14)
[2017-12-18] MEDS: PSYLLIUM POWDER 3.7 GM/PACK PO SCH (20:47)
[2017-12-18] MEDS: MIRTAZAPINE 15 MG TABLET PO SCH (20:48)
[2017-12-18] MEDS: DONEPEZIL 5 MG TABLET PO SCH (20:48)
[2017-12-18] MEDS: ENOXAPARIN 40 MG/0.4 ML SYRINGE SUBCUT SCH (20:48)
[2017-12-19] MEDS: ALBUTEROL/IPRATROPIUM 3 ML NEB RESP TX SCH ×4 (01:58→19:06)
[2017-12-19] MEDS: POLYETHYLENE GLYCOL POWDER 17 GM PACK PO SCH (09:30)
[2017-12-19] MEDS: AMIODARONE 200 MG TABLET PO SCH (09:33)
[2017-12-19] MEDS: CITALOPRAM 20 MG TABLET PO SCH (09:34)
[2017-12-19] MEDS: CYPROHEPTADINE 4 MG TABLET PO SCH ×2 (09:35→20:37)
[2017-12-19] MEDS: amLODIPine 5 MG TABLET PO SCH (09:36)
[2017-12-19] MEDS: FERROUS SULFATE 325 MG TABLET PO SCH (09:36)
[2017-12-19] MEDS: CARVEDILOL 12.5 MG TABLET PO SCH ×2 (09:36→16:24)
[2017-12-19] MEDS: PANTOPRAZOLE 40 MG TABLET PO SCH (09:36)
[2017-12-19] MEDS: POTASSIUM CHLORIDE 20 MEQ TABLET PO SCH (09:37)
[2017-12-19] MEDS: PSYLLIUM POWDER 3.7 GM/PACK PO SCH (20:37)
[2017-12-19] MEDS: MIRTAZAPINE 15 MG TABLET PO SCH (20:37)
[2017-12-19] MEDS: ENOXAPARIN 40 MG/0.4 ML SYRINGE SUBCUT SCH (20:37)
[2017-12-19] MEDS: DONEPEZIL 5 MG TABLET PO SCH (20:37)
[2017-12-20] MEDS: ALBUTEROL/IPRATROPIUM 3 ML NEB RESP TX SCH ×4 (00:48→18:48)
[2017-12-20] MEDS ORDERED: DOXYCYCLINE HYCLATE INJ 200 MG, LIDOCAINE 1% INJ 20 ML in STERILE WATER INJ 40 ML INTRAPLEUR ONE (08:20)
[2017-12-20] MEDS: POLYETHYLENE GLYCOL POWDER 17 GM PACK PO SCH (08:54)
[2017-12-20] MEDS: CYPROHEPTADINE 4 MG TABLET PO SCH ×2 (08:56→21:01)
[2017-12-20] MEDS: amLODIPine 5 MG TABLET PO SCH (08:56)
[2017-12-20] MEDS: POTASSIUM CHLORIDE 20 MEQ TABLET PO SCH (08:56)
[2017-12-20] MEDS: AMIODARONE 200 MG TABLET PO SCH (08:57)
[2017-12-20] MEDS: CITALOPRAM 20 MG TABLET PO SCH (08:58)
[2017-12-20] MEDS: CARVEDILOL 12.5 MG TABLET PO SCH ×2 (08:59→17:07)
[2017-12-20] MEDS: PANTOPRAZOLE 40 MG TABLET PO SCH (08:59)
[2017-12-20] MEDS: FERROUS SULFATE 325 MG TABLET PO SCH (09:00)
[2017-12-20] MEDS ORDERED: MORPHINE 4 MG/1 ML VIAL IV ONE (10:46)
[2017-12-20] MEDS: PSYLLIUM POWDER 3.7 GM/PACK PO SCH (21:01)
[2017-12-20] MEDS: MIRTAZAPINE 15 MG TABLET PO SCH (21:01)
[2017-12-20] MEDS: ENOXAPARIN 40 MG/0.4 ML SYRINGE SUBCUT SCH (21:01)
[2017-12-20] MEDS: DONEPEZIL 5 MG TABLET PO SCH (21:01)
[2017-12-21] MEDS: ALBUTEROL/IPRATROPIUM 3 ML NEB RESP TX SCH ×4 (01:02→19:51)
[2017-12-21] MEDS: PANTOPRAZOLE 40 MG TABLET PO SCH (08:27)
[2017-12-21] MEDS ORDERED: FUROSEMIDE 20 MG/2 ML VIAL IV ONE (08:27)
[2017-12-21] MEDS: CITALOPRAM 20 MG TABLET PO SCH (08:27)
[2017-12-21] MEDS: POTASSIUM CHLORIDE 20 MEQ TABLET PO SCH (08:31)
[2017-12-21] MEDS: AMIODARONE 200 MG TABLET PO SCH (08:32)
[2017-12-21] MEDS: POLYETHYLENE GLYCOL POWDER 17 GM PACK PO SCH (08:32)
[2017-12-21] MEDS: amLODIPine 5 MG TABLET PO SCH (08:33)
[2017-12-21] MEDS: FERROUS SULFATE 325 MG TABLET PO SCH (08:33)
[2017-12-21] MEDS: CARVEDILOL 12.5 MG TABLET PO SCH ×2 (08:33→17:35)
[2017-12-21] MEDS: CYPROHEPTADINE 4 MG TABLET PO SCH ×2 (08:34→20:28)
[2017-12-21] MEDS: DONEPEZIL 5 MG TABLET PO SCH (20:27)
[2017-12-21] MEDS: MIRTAZAPINE 15 MG TABLET PO SCH (20:27)
[2017-12-21] MEDS: PSYLLIUM POWDER 3.7 GM/PACK PO SCH (20:31)
[2017-12-21] MEDS: ENOXAPARIN 40 MG/0.4 ML SYRINGE SUBCUT SCH (20:32)
[2017-12-22] MEDS: ALBUTEROL/IPRATROPIUM 3 ML NEB RESP TX SCH ×4 (00:58→19:35)
[2017-12-22] MEDS: CITALOPRAM 20 MG TABLET PO SCH (10:26)
[2017-12-22] MEDS: FERROUS SULFATE 325 MG TABLET PO SCH (10:27)
[2017-12-22] MEDS: CYPROHEPTADINE 4 MG TABLET PO SCH ×2 (10:27→21:20)
[2017-12-22] MEDS: POTASSIUM CHLORIDE 20 MEQ TABLET PO SCH (10:27)
[2017-12-22] MEDS: PANTOPRAZOLE 40 MG TABLET PO SCH (10:27)
[2017-12-22] MEDS: AMIODARONE 200 MG TABLET PO SCH (10:27)
[2017-12-22] MEDS: CARVEDILOL 12.5 MG TABLET PO SCH ×2 (10:27→17:43)
[2017-12-22] MEDS: amLODIPine 5 MG TABLET PO SCH (10:27)
[2017-12-22] MEDS: POLYETHYLENE GLYCOL POWDER 17 GM PACK PO SCH (10:28)
[2017-12-22] MEDS: MIRTAZAPINE 15 MG TABLET PO SCH (21:19)
[2017-12-22] MEDS: ENOXAPARIN 40 MG/0.4 ML SYRINGE SUBCUT SCH (21:20)
[2017-12-22] MEDS: DONEPEZIL 5 MG TABLET PO SCH (21:20)
[2017-12-22] MEDS: PSYLLIUM POWDER 3.7 GM/PACK PO SCH (21:20)
[2017-12-23] MEDS: ALBUTEROL/IPRATROPIUM 3 ML NEB RESP TX SCH ×4 (01:52→19:18)
[2017-12-23 09:28] LABS: Basophils % 0.8 % (0.0-0.8); Eosinophils # 0.1 10*3/uL (0.0-0.87); Eosinophils % 1.4 % (0.00-10.9); Hematocrit 37.9 VOL% (35.7-47.0); Hemoglobin 11.9 GM/DL (12.0-16.0); Immature Granulocytes % 1.1 %; Immature Granulocytes Absolute 0.04 #; Lymphocytes # 0.4 10*3/uL (1.4-4.0); Lymphocytes % 10.9 % (21.3-54.2); Mean Corpuscular HGB Conc 31.4 GM/DL (32-36); Mean Corpuscular Hemoglobin 33 PG (27-34); Mean Corpuscular Volume 105.3 FL (87-102); Mean Platelet Volume 10.4 FL (9.6-12.0); Monocytes # 0.4 10*3/uL (0.11-0.8); Monocytes % 10.6 % (1.7-12.7); Neutrophils # 2.7 10*3/uL (1.4-7.4); Neutrophils % 75.2 % (38.7-73.9); Platelet Count 213 T/CUMM (130-400); Red Cell Distribution Width 13.6 % (9.3-17.3); White Blood Count 3.6 T/CUMM (4-12)
[2017-12-23 09:55] LABS: Calcium 8.1 MG/DL (8.5-10.1); Osmolality,Calculated 278.3 MOS/KG (273-304)
[2017-12-23] MEDS: POLYETHYLENE GLYCOL POWDER 17 GM PACK PO SCH (10:00)
[2017-12-23] MEDS: FERROUS SULFATE 325 MG TABLET PO SCH (10:00)
[2017-12-23] MEDS: POTASSIUM CHLORIDE 20 MEQ TABLET PO SCH (10:01)
[2017-12-23] MEDS: CYPROHEPTADINE 4 MG TABLET PO SCH ×2 (10:01→20:50)
[2017-12-23] MEDS: CITALOPRAM 20 MG TABLET PO SCH (10:01)
[2017-12-23] MEDS: AMIODARONE 200 MG TABLET PO SCH (10:01)
[2017-12-23] MEDS: amLODIPine 5 MG TABLET PO SCH (10:02)
[2017-12-23] MEDS: PANTOPRAZOLE 40 MG TABLET PO SCH (10:02)
[2017-12-23] MEDS: CARVEDILOL 12.5 MG TABLET PO SCH ×2 (10:02→18:30)
[2017-12-23] MEDS: PSYLLIUM POWDER 3.7 GM/PACK PO SCH (20:50)
[2017-12-23] MEDS: DONEPEZIL 5 MG TABLET PO SCH (20:50)
[2017-12-23] MEDS: MIRTAZAPINE 15 MG TABLET PO SCH (20:50)
[2017-12-23] MEDS: ENOXAPARIN 40 MG/0.4 ML SYRINGE SUBCUT SCH (20:50)
[2017-12-24] MEDS: ALBUTEROL/IPRATROPIUM 3 ML NEB RESP TX SCH ×2 (00:12→07:20)
[2017-12-24 06:13] LABS: Basophils % 0.8 % (0.0-0.8); Eosinophils # 0.1 10*3/uL (0.0-0.87); Eosinophils % 1.5 % (0.00-10.9); Hematocrit 35.1 VOL% (35.7-47.0); Immature Granulocytes Absolute 0.04 #; Lymphocytes # 0.5 10*3/uL (1.4-4.0); Lymphocytes % 12.4 % (21.3-54.2); Mean Corpuscular HGB Conc 31.3 GM/DL (32-36); Mean Corpuscular Hemoglobin 33 PG (27-34); Mean Corpuscular Volume 104.8 FL (87-102); Mean Platelet Volume 10.4 FL (9.6-12.0); Monocytes # 0.5 10*3/uL (0.11-0.8); Monocytes % 12.4 % (1.7-12.7); Neutrophils # 2.9 10*3/uL (1.4-7.4); Neutrophils % 71.9 % (38.7-73.9); Platelet Count 221 T/CUMM (130-400); Red Blood Count 3.35 MC/CUMM (3.8-5.5); Red Cell Distribution Width 13.8 % (9.3-17.3)
[2017-12-24 06:42] LABS: Calcium 8.4 MG/DL (8.5-10.1); Potassium 3.6 MMOL/L (3.5-5.1)
[2017-12-24 08:50] VITALS: BP 104/59
[2017-12-24] MEDS: POLYETHYLENE GLYCOL POWDER 17 GM PACK PO SCH (09:26)
[2017-12-24] MEDS: FERROUS SULFATE 325 MG TABLET PO SCH (09:28)
[2017-12-24] MEDS: AMIODARONE 200 MG TABLET PO SCH (09:29)
[2017-12-24] MEDS: CYPROHEPTADINE 4 MG TABLET PO SCH (09:29)
[2017-12-24] MEDS: amLODIPine 5 MG TABLET PO SCH (09:29)
[2017-12-24] MEDS: POTASSIUM CHLORIDE 20 MEQ TABLET PO SCH (09:29)
[2017-12-24] MEDS: PANTOPRAZOLE 40 MG TABLET PO SCH (09:29)
[2017-12-24] MEDS: CITALOPRAM 20 MG TABLET PO SCH (09:29)
[2017-12-24] MEDS: CARVEDILOL 12.5 MG TABLET PO SCH (09:30)
== END 2017-12-24 11:22 | DRG 843 ==
LOC: EDUNIT# → EDBD → N.ED 12:33 → SUATTDRO 16:58 → N.EDINP 16:58 → N.ICU 20:07 → N.4E 12-10 17:31
PROVIDERS: ADMIT Internal Medicine; ATTEND Family Medicine
PROC: IRTHORA (2017-12-05 10:10)

== ENCOUNTER 2018-01-07 10:09 | Observation (INO) ==
[2018-01-07] MEDS ORDERED: ALBUTEROL 2.5 MG/3 ML NEB RESP TX STA (10:27)
[2018-01-07] MEDS ORDERED: FUROSEMIDE 40 MG/4 ML VIAL IV STA (11:00)
[2018-01-07 11:01] LABS: Basophils % 0.3 % (0.0-0.8); Eosinophils # 0.1 10*3/uL (0.0-0.87); Eosinophils % 0.9 % (0.00-10.9); Hemoglobin 13.1 GM/DL (12.0-16.0); Immature Granulocytes % 0.7 %; Immature Granulocytes Absolute 0.04 #; Lymphocytes # 0.6 10*3/uL (1.4-4.0); Mean Corpuscular HGB Conc 31.2 GM/DL (32-36); Mean Corpuscular Hemoglobin 33 PG (27-34); Monocytes # 0.5 10*3/uL (0.11-0.8); Monocytes % 8.7 % (1.7-12.7); Neutrophils # 4.5 10*3/uL (1.4-7.4); Neutrophils % 79.4 % (38.7-73.9); Platelet Count 190 T/CUMM (130-400); Red Cell Distribution Width 13.3 % (9.3-17.3); White Blood Count 5.7 T/CUMM (4-12)
[2018-01-07 11:09] LABS: INR 1.1
[2018-01-07 11:23] LABS: Amorphous Crystals,Urine Occasional /HPF (Few); Apearance,Urine CLEAR (Clear); Bacteria,Urine Occasional /HPF (Few); Bilirubin,Urine Negative (Negative); Blood, Urine Negative (Negative); Glucose,Urine (UA) Negative (Negative); Hyaline Casts,Urine 1 /LPF (0-3); Ketones,Urine Negative (Negative); Mucus,Urine Occasional /LPF (Occasional); Nitrite,Urine Negative (Negative); Protein,Urine 30 MG/DL; RBC,Urine 1 /HPF (0-4); Squamous Epithelial Cell,Urine Occasional /HPF (0-10); Urine Color Yellow (Yellow); Urine Specific Gravity 1.019 (1.001-1.035); WBC,Urine 3 /HPF (0-6)
[2018-01-07 11:36] LABS: Alanine Aminotransferase < 6 U/L (13-56); Albumin 2.4 G/DL (3.4-5.0); Alkaline Phosphatase 129 U/L (45-117); Aspartate Amino Transferase 20 U/L (0-37); Blood Urea Nitrogen 12 MG/DL (7-18); Calcium 8.3 MG/DL (8.5-10.1); Glucose 110 MG/DL (74-106); Osmolality,Calculated 290.6 MOS/KG (273-304); Potassium 4.1 MMOL/L (3.5-5.1); Sodium 146 MMOL/L (136-145); Total Protein 6.6 G/DL (6.4-8.3)
[2018-01-07] MEDS ORDERED: ACETAMINOPHEN 325 MG TABLET PO PRN ×2 (12:26→12:31)
[2018-01-07] MEDS ORDERED: ONDANSETRON 4 MG/2 ML VIAL IV PRN (12:26)
[2018-01-07] MEDS ORDERED: ONDANSETRON 4 MG TABLET PO PRN (12:31)
[2018-01-07] MEDS ORDERED: diphenhydrAMINE CAP 25 MG CAPSULE PO PRN (12:31)
[2018-01-07] MEDS ORDERED: PROMETHAZINE 25 MG TABLET PO PRN (12:31)
[2018-01-07] MEDS ORDERED: LOPERAMIDE 2 MG CAPSULE PO PRN (12:31)
[2018-01-07] MEDS ORDERED: FEXOFENADINE 60 MG TABLET PO PRN (12:31)
[2018-01-07] MEDS ORDERED: MAGNESIUM HYDROXIDE SUSP 30 ML UDCUP PO PRN (12:31)
[2018-01-07] MEDS: ALBUTEROL/IPRATROPIUM 3 ML NEB RESP TX SCH ×2 (14:00→19:24)
[2018-01-07] MEDS: FUROSEMIDE 40 MG/4 ML VIAL IV SCH (15:55)
[2018-01-07] MEDS ORDERED: DONEPEZIL 5 MG TABLET PO SCH (21:00)
[2018-01-07] MEDS ORDERED: MIRTAZAPINE 15 MG TABLET PO SCH (21:00)
[2018-01-07] MEDS ORDERED: POLYCARBOPHIL 625 MG TABLET PO SCH (21:00)
[2018-01-07] MEDS: CYPROHEPTADINE 4 MG TABLET PO SCH (22:46)
[2018-01-07] MEDS: MEGESTROL 400 MG/10 ML UDCUP PO SCH (22:47)
[2018-01-07] MEDS: CARVEDILOL 12.5 MG TABLET PO SCH (22:47)
[2018-01-08] MEDS: ALBUTEROL/IPRATROPIUM 3 ML NEB RESP TX SCH ×3 (01:38→13:25)
[2018-01-08 07:10] LABS: Basophils % 0.6 % (0.0-0.8); Eosinophils # 0.1 10*3/uL (0.0-0.87); Eosinophils % 1.3 % (0.00-10.9); Hemoglobin 12.2 GM/DL (12.0-16.0); Immature Granulocytes % 0.8 %; Immature Granulocytes Absolute 0.04 #; Lymphocytes # 0.6 10*3/uL (1.4-4.0); Lymphocytes % 10.7 % (21.3-54.2); Mean Corpuscular HGB Conc 31.3 GM/DL (32-36); Mean Corpuscular Hemoglobin 32 PG (27-34); Mean Corpuscular Volume 103.2 FL (87-102); Mean Platelet Volume 10.5 FL (9.6-12.0); Monocytes # 0.6 10*3/uL (0.11-0.8); Monocytes % 10.5 % (1.7-12.7); Neutrophils % 76.1 % (38.7-73.9); Platelet Count 164 T/CUMM (130-400); Red Blood Count 3.78 MC/CUMM (3.8-5.5); Red Cell Distribution Width 13.2 % (9.3-17.3); White Blood Count 5.3 T/CUMM (4-12)
[2018-01-08 07:36] LABS: Calcium 8.2 MG/DL (8.5-10.1); Osmolality,Calculated 289.6 MOS/KG (273-304); Potassium 3.6 MMOL/L (3.5-5.1)
[2018-01-08] MEDS: FUROSEMIDE 40 MG/4 ML VIAL IV SCH (08:46)
[2018-01-08] MEDS: MEGESTROL 400 MG/10 ML UDCUP PO SCH (08:46)
[2018-01-08] MEDS: CARVEDILOL 12.5 MG TABLET PO SCH (08:48)
[2018-01-08] MEDS: CYPROHEPTADINE 4 MG TABLET PO SCH (08:48)
[2018-01-08] MEDS ORDERED: MULTIVITAMIN (CENTRUM) TABLET PO SCH (09:00)
[2018-01-08] MEDS ORDERED: PANTOPRAZOLE 40 MG TABLET PO SCH ×2 (09:00)
[2018-01-08] MEDS ORDERED: ERGOCALCIFEROL 50,000 UNIT CAPSULE PO SCH (09:00)
[2018-01-08] MEDS ORDERED: CITALOPRAM 20 MG TABLET PO SCH (09:00)
[2018-01-08] MEDS ORDERED: FERROUS SULFATE 325 MG TABLET PO SCH (09:00)
[2018-01-08] MEDS ORDERED: POTASSIUM CHLORIDE 20 MEQ TABLET PO SCH (09:00)
[2018-01-08] MEDS ORDERED: AMIODARONE 200 MG TABLET PO SCH (09:00)
[2018-01-08] MEDS ORDERED: POLYETHYLENE GLYCOL POWDER 17 GM PACK PO SCH (09:00)
[2018-01-08 11:55] VITALS: BP 102/65
== END 2018-01-08 15:30 | disposition hospice, inpatient (51) ==
LOC: EDBD → EDUNIT# → N.ED 10:09 → N.EDINP 10:09 → N.5E 17:49
PROVIDERS: ADMIT Internal Medicine Geriatric Medicine; ATTEND Internal Medicine Geriatric Medicine